=== PATIENT | female | born 1995 | race Caucasian/White ===

== ENCOUNTER 2020-01-05 22:02 | Emergency (ER) | payer OTHER ==
[~2020-01-05] VITALS: Ht 162.6 cm; Wt 68.0 kg
--- NOTE | 2020-01-05 22:06 | PHYS DOC ---
General Adult HPI: HPI: ",, I stepped off edge of side walk.. really rolled this Rt. ankle..." It was about 4 pm.. and I still can not bear wt. on it..." Patient is a 24 year old female who presents with above hx and complaints right ankle injury. Patient had an inversion of foot as she stepped on the edge of a sidewalk. Patient has marked edema of lateral malleolus of right ankle. Patient has obvious marked swelling. There is some ecchymosis. Distal sens ation and pulses equal to left foot. Does have laxity on anterior drawer of ankle and inversion of right foot. No upper leg tenderness. No other injuries reported. Patient denies any recent travel outside [facility]. No history of immunosuppression. No history of specific ill contacts. Review of Systems: Review of Systems: Constitutional: Denies fever or chills Eyes: Denies change in visual acuity HENT: Denies nasal congestion or sore throat Respiratory: Denies cough or shortness of breath Cardiovascular: Denies chest pain or edema GI: Denies abdominal pain, nausea, vomiting, bloody stools or diarrhea : Denies dysuria Musculoskeletal: Complains of right ankle pain Integument: Denies rash Neurologic: Denies headache, focal weakness or sensory changes Endocrine: Denies polyuria or polydipsia Lymphatic: Denies swollen glands Psychiatric: Denies depression or anxiety Heart Score: Risk Factors: Risk Factors: DM, Current or recent (<one month) smoker, HTN, HLP, family history of CAD, obesity. Risk Scores: Score 0 - 3: 2.5% MACE over next 6 weeks - Discharge Home Score 4 - 6: 20.3% MACE over next 6 weeks - Admit for Clinical Observation Score 7 - 10: 72.7% MACE over next 6 weeks - Early Invasive Strategies Family History: Family History: Noncontributory to presentation Current Medications: Current Meds: See nursing for home meds Physical Exam: PE: Constitutional: Well developed, well nourished, moderate acute distress, non- toxic appearance. [] HENT: Normocephalic, atraumatic, bilateral external ears normal, oropharynx moist, no oral exudates, nose normal. [] Eyes: PERRLA, EOMI, conjunctiva normal, no discharge. [] Neck: Normal range of motion, no tenderness, supple, no stridor. [] Cardiovascular:Heart rate regular rhythm, no murmur [] Lungs & Thorax: Bilateral breath sounds equal apex with scattered wheezes on auscultation [] Abdomen: Bowel sounds normal, soft, no tenderness, no masses, no pulsatile masses. [] Skin: Warm, dry, no erythema, no rash. [] Back: No tenderness, no CVA tenderness. [] Extremities: No tenderness, no cyanosis, no clubbing, ROM intact, no edema. [] Except findings in right ankle as per HPI Neurologic: Alert and oriented X 3, normal motor function, normal sensory function, no focal deficits noted. [] Psychologic: Affect anxious , judgement normal, mood normal. [] EKG: EKG: [] Radiology/Procedures: Radiology/Procedures: [][address] [address] IMAGING REPORT Signed PATIENT: REINA CATES ACCOUNT: [id number] : 1995 LOCATION: ER AGE: 24 SEX: F EXAM STATUS: REG ER ORD. PHYSICIAN: JED LAYNE MD REASON: rolled rt. ankle edge side walk PROCEDURE: ANKLE RIGHT 3V Exam: Right ankle 3 views INDICATION: Rolled ankle TECHNIQUE: Frontal, lateral and oblique views of the right ankle Comparisons: None FINDINGS: There is diffuse soft tissue swelling surrounding the ankle. Bone mineralization is normal. No acute or healed fractures. Joint spaces are well-maintained. IMPRESSION: Diffuse soft tissue swelling surrounding the ankle without underlying osseous abnormality identified. Electronically signed by: Zain Avila MD (01/05/2020 11:10 PM) [id number] DICTATED AND SIGNED BY: ZAIN AVILA MD DATE: 01/05/20 0148 CC: JED LAYNE MD; PCP,NO ~ Course & Med Decision Making: Course & Med Decision Making Pertinent Labs and Imaging studies reviewed. (See chart for details) Noted patient still unable to bear weight after splint. Distal neurovascular appears intact. Patient aware splint. Ice, elevation, rest, crutches, and take [id number] Tylenol and ibuprofen. For marked pain may take Vicoprofen. Follow-up primary care. Repeat x-ray in 2 weeks if no improvement sometimes a fracture may be missed on initial films. Impression; 1. Right ankle sprain [] Saqibon Disclaimer: Jill Disclaimer: This electronic medical record was generated, in whole or in part, using a voice recognition dictation system. Departure Departure: Disposition: HOME/RESIDENCE PRIOR TO ADM Condition: STABLE Referrals: PCP,NO (PCP) Scripts Hydrocodone/Ibuprofen (HYDROCODONE-IBUPROFEN 7.5-200 ) 1 Each Tablet 1 TAB PO PRN Q6HRS PRN for PAIN, #30 TAB 0 Refills Prov: JED LAYNE MD 01/05/20 Justification of Admission: Justification of Admission: Justification of Admission Dx: N/A Dragon Disclaimer This chart was dictated in whole or in part using Voice Recognition software in a busy, high-work load, and often noisy Emergency Department environment. It may contain unintended and wholly unrecognized errors or omissions. JED LAYNE MD Jan 05, 2020 22:06
[2020-01-05 22:07] VITALS: BP 134/80
[2020-01-05] MEDS ORDERED: oxyCODONE/APAP 5/325 1 TAB TABLET PO ONE (23:00)
[2020-01-05 23:07] LABS: BARBITURATES NEG (NEG); BENZODIAZEPINES NEG (NEG); CANNABINOIDS POS (NEG); COCAINE NEG (NEG); METHADONE NEG (NEG); OPIATES NEG (NEG); PHENCYCLIDINE NEG (NEG)
[2020-01-05 23:09] LABS: BACTERIA,URINE MANY /HPF (0-FEW); BILIRUBIN,URINE NEG (NEG); CLARITY,URINE HAZY; COLOR,URINE YELLOW; GLUCOSE,URINE NEG (NEG); NITRITE,URINE POS (NEG); RBC,URINE OCC /HPF (0-2); SQUAMOUS EPITHELIAL CELL,UR FEW /LPF; UROBILINOGEN,URINE 0.2 mg/dL (0.2 mg/dL)
[2020-01-05 23:12] LABS: AMPHETAMINE/METHAMPHETAMINE NEG (NEG)
--- NOTE | 2020-01-05 23:13 | RAD ---
Exam: Right ankle 3 views INDICATION: Rolled ankle TECHNIQUE: Frontal, lateral and oblique views of the right ankle Comparisons: None FINDINGS: There is diffuse soft tissue swelling surrounding the ankle. Bone mineralization is normal. No acute or healed fractures. Joint spaces are well-maintained. IMPRESSION: Diffuse soft tissue swelling surrounding the ankle without underlying osseous abnormality identified. Electronically signed by: Zain Singleton MD (01/05/2020 11:10 PM) [id number]
[2020-01-05] MEDS ORDERED: HYDR-1179 PO (23:30)
== END 2020-01-05 23:45 | disposition home or self-care (01) ==
LOC: ER 22:02
DX: S93.401A Sprain of unspecified ligament of right ankle, initial encounter (principal); X50.9XXA Other and unspecified overexertion or strenuous movements or postures, initial encounter; Y93.89 Activity, other specified; Y92.89 Other specified places as the place of occurrence of the external cause; Y99.8 Other external cause status
CPT/HCPCS: 29515; 36415; 73610; 80307; 81001; 81025; 87086; 99284